=== PATIENT | male | born 1985 | race Caucasian/White ===

== ENCOUNTER 2017-03-14 17:32 | Emergency (ER) | payer SELFPAY ==
[2017-03-14] MEDS ORDERED: ACETAMINOPHEN 325 MG TABLET PO ONE (18:41)
[2017-03-14] MEDS ORDERED: ONDANSETRON HCL INJ/PF 4 MG/2 ML SDV IV ONE (18:51)
--- NOTE | 2017-03-14 18:52 | ER Document Report ---
HPI - HPI Pain Level: 5 Notes: Patient is a 31-year-old male with a history of Crohn's who presents the ED complaining of fever, body ache, nasal congestion/discharge, postnasal drip, irritated throat, dry nonproductive cough, decreased p.o. intake, nausea/ vomiting with p.o. intake only 2-3 days. Patient has not taken any over-the- counter meds for symptoms. Patient still urinating having normal bowel movements. Patient did not get his flu shot this year. No other concerns or complaints. Denies any drug allergies. Denies any headache, neck pain, drooling, hoarseness, trouble swallowing, chest pain, palpitations, syncope, shortness of breath, wheeze, dyspnea, abdominal pain, diarrhea, urinary retention, dysuria, hematuria, or rash. - ROS Notes: REVIEW OF SYSTEMS: CONSTITUTIONAL : see hpi EENT: see hpi CARDIOVASCULAR: Denies chest pain. Denies palpitations or racing or irregular heart beat. Denies ankle edema. RESPIRATORY: see hpi. Denies shortness of breath, difficulty breathing, or wheezing. GASTROINTESTINAL: Denies abdominal pain or distention. see hpi. no diarrhea. Denies blood in vomitus, stools, or per rectum. Denies black, tarry stools. Denies constipation. GENITOURINARY: Denies difficulty urinating, painful urination, burning, frequency, blood in urine, or discharge. MUSCULOSKELETAL: Denies back or neck pain or stiffness. Denies joint pain or swelling. SKIN: Denies rash, lesions or sores. NEUROLOGICAL: Denies confusion or altered mental status. Denies passing out or loss of consciousness. Denies dizziness or lightheadedness. Denies headache. Denies problems with gait or speech. Denies sensory loss, numbness, or tingling. Denies seizures. ALL OTHER SYSTEMS REVIEWED AND NEGATIVE. Dictation was performed using [employer] voice recognition software Past Medical History - Social History Smoking Status: Never Smoker Family History: Reviewed & Not Pertinent GI Medical History: Reports: Hx Crohn's Disease Vertical Provider Document - CONSTITUTIONAL Agree With Documented VS: Yes Notes: PHYSICAL EXAMINATION: GENERAL: Well-appearing, well-nourished and in no acute distress. A&Ox4 HEAD: Atraumatic, normocephalic. EYES: Pupils equal round and reactive to light, extraocular movements intact, sclera anicteric, conjunctiva are normal. ENT: EAC clear b/l. TM's intact b/l without erythema, fluid, or perforation. Nares patent and with clear discharge. oropharynx mild erythema without exudates. No tonsilar hypertrophy & without erythema or exudate. No palatine shift. Uvula midline. No tongue protrusion. No drooling, hoarseness, or airway compromise. Moist mucous membranes. No sinus tenderness. NECK: Normal range of motion, supple without lymphadenopathy. No rigidity/ meningismus. LUNGS: Breath sounds clear to auscultation bilaterally and equal. No wheezes rales or rhonchi. HEART: Regular rate and rhythm without murmurs, rubs, gallops. ABDOMEN: Soft, nontender, nondistended abdomen. No guarding, no rebound. No masses appreciated. Normal bowel sounds present. No CVA tenderness bilaterally. No hepatosplenomegaly. NEUROLOGICAL: Normal speech, normal gait. Normal sensory, motor exams PSYCH: Normal mood, normal affect. SKIN: Warm, Dry, normal turgor, no rashes or lesions noted. - INFECTION CONTROL TRAVEL OUTSIDE OF THE [place] IN LAST 30 DAYS: No - RESPIRATORY O2 Sat by Pulse Oximetry: 97 Course - Re-evaluation Re-evalutation: 03/14/17 19:56 I did a recheck on patient: 124/62, 116 HR, 18RR, 102.5 oral, 99% RA. pt finishing up the 2 liters saline. Reviewed vitals with Dr. Marrero. We will add 1 more liter NS and Toradol 03/14/17 21:35 Patient is a well-hydrated 31-year-old male who presents ED with fever and influenza A. Vitals are stable otherwise. PE is otherwise unremarkable. Rapid influenza was positive. Patient was given Zofran and 3L normal saline as well as p.o. Tylenol and 30mg IV toradol. Patient is tolerating p.o. without any difficulties. No other labs or imaging warranted at this time based on H& P. Low suspicion for any meningitis, sepsis, peritonsillar/pharyngeal abscess, respiratory compromise, Michael's, or other emergent systemic condition at this time. Patient is aware this condition can change from initial presentation and he needs to monitor symptoms closely. Conservative measures otherwise for symptoms. Recheck with your PCM in 3-5 days. Return to the ED with any worsening/concerning symptoms otherwise as reviewed in discharge. Patient is in agreement. - Vital Signs Vital signs: Temp Pulse Resp BP Pulse Ox 102.2 F H 116 H 20 131/75 H 97 03/14/17 18:38 03/14/17 18:38 03/14/17 18:38 03/14/17 18:38 03/14/17 18:38 Discharge - Discharge Clinical Impression: Influenza Condition: Stable Disposition: HOME, SELF-CARE Instructions: Influenza (OM) Additional Instructions: Maintain adequate fluid intake [place] diet tylenol/ibuprofen as needed over the counter cold medication as needed for symptoms Humidified air may help F/u: with your PCM in 3-5 days for a recheck Return to the ED with any fever, worsening pain, chest pain, palpitations, syncope, worsening DA SILVA, neck pain/stiffness, shortness of breath, wheezing, drooling, trouble swallowing/breathing, abdominal pain, n/v/d, rash, or worsening/concerning symptoms otherwise. Forms: Elevated Blood Pressure Referrals: [facility] [Provider Group] - Follow up as needed [facility] [Provider Group] - Follow up as needed
[2017-03-14] MEDS: NORMAL SALINE 1000 ML 1,000 ML IV PRN ×2 (19:05→19:06)
[2017-03-14 19:45] LABS: A TYPE INFLUENZA AG POSITIVE (NEGATIVE); B INFLUENZA AG NEGATIVE (NEGATIVE)
[2017-03-14] MEDS ORDERED: IBUPROFEN 800 MG TABLET PO ONE (19:57)
[2017-03-14] MEDS ORDERED: NORMAL SALINE 1000 ML 1,000 ML IV ONE (20:01)
[2017-03-14] MEDS ORDERED: KETOROLAC TROMETHAMINE INJ/PF 30 MG/1 ML SDV IV ONE (20:01)
[2017-03-14 21:30] VITALS: BP 116/52
[2017-03-14] MEDS ORDERED: ONDANSETRON ODT 4 MG TAB (6 TAB/ER DISP) PO PRN (21:45)
== END 2017-03-14 22:08 | disposition home or self-care (01) ==
LOC: ER 17:32
DX: J11.1 Influenza due to unidentified influenza virus with other respiratory manifestations (principal); R50.9 Fever, unspecified; R09.82 Postnasal drip; R05 Cough; R11.2 Nausea with vomiting, unspecified
CPT/HCPCS: 99283; 96361; 96374; 96375; 87804; J1885; J2405; J7030